=== PATIENT | male | born 1950 | race American Indian/Alaskan Native ===

== ENCOUNTER 2017-09-14 20:36 | Emergency (ER) | payer MEDICARE ==
[2017-09-14 20:37] VITALS: BMI 24.2
[2017-09-14 20:43] VITALS: BP 162/80; PULSE 68; RESP 20; TEMP 97.8; O2SAT 98
--- NOTE | 2017-09-14 21:12 | C.PDOC ---
History Of Present Illness 66 y/o male presents to the ER complaining of small painful abscess to upper abdomen which has been present for the past 1 week. Patient states that the rwas moderate drainage 2 days ago but there is no drainage now. However, he still feels pain. Denies having fever and chills. Time Seen by Provider: 09/14/17 20:56 Chief Complaint (Nursing): Abnormal Skin Integrity History Per: Patient History/Exam Limitations: no limitations Onset/Duration Of Symptoms: Days Current Symptoms Are (Timing): Still Present Severity: Moderate Past Medical History Reviewed: Historical Data, Nursing Documentation, Vital Signs Vital Signs: Last Vital Signs Temp 97.8 F 09/14/17 20:41 Pulse 68 09/14/17 20:41 Resp 20 09/14/17 20:41 BP 162/80 H 09/14/17 20:41 Pulse Ox 98 09/14/17 21:14 - Medical History PMH: Arthritis, Depression, Diabetes, HTN, Hypercholesterolemia Denies: Chronic Kidney Disease Other Surgeries: hx of surgeries - [facility] Procedures ESOPHAGOGASTRODUODENOSCOPY [EGD] W/CLOSED BIOPSY (08/05/14) Family History: States: No Known Family Hx - Social History Hx Tobacco Use: No Hx Alcohol Use: No Hx Substance Use: No (Occacionally THC) - Immunization History Hx Tetanus Toxoid Vaccination: Yes Hx Influenza Vaccination: Yes Hx Pneumococcal Vaccination: No Review Of Systems Except As Marked, All Systems Reviewed And Found Negative. Constitutional: Negative for: Fever, Chills Skin: Positive for: Other (abscess to upper abdomen) Physical Exam - Physical Exam Appears: Non-toxic, No Acute Distress Skin: Normal Color, Warm, Dry Head: Atraumatic, Normacephalic Eye(s): bilateral: Normal Inspection Nose: Normal Oral Mucosa: Moist Neck: Supple Chest: Symmetrical Cardiovascular: Rhythm Regular Respiratory: Normal Breath Sounds, No Rales, No Rhonchi, No Wheezing Gastrointestinal/Abdominal: Soft, No Tenderness, No Guarding, No Rebound, Other (2 x 2 cm area of induration tender with localized erythema to abdominal wall of epigastric area, no fluctuant mass) Extremity: Normal ROM Neurological/Psych: Oriented x3, Normal Speech ED Course And Treatment O2 Sat by Pulse Oximetry: 98 (RA) Pulse Ox Interpretation: Normal Progress Note: There is no need for I&D. Patient has been discharged with prescription for abx and wound check in 2 days. 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 - Scribe Statement The provider has reviewed the documentation as recorded by the Sp Banks Provider Attestation All medical record entries made by the Sp were at my direction and personally dictated by me. I have reviewed the chart and agree that the record accurately reflects my personal performance of the history, physical exam, medical decision making, and the department course for this patient. I have also personally directed, reviewed, and agree with the discharge instructions and disposition.
[2017-09-14] MEDS ORDERED: Tmp-Smz 800 mg-160 mg DS Tab PO SCH (21:15)
[2017-09-14] MEDS ORDERED: Tmp-Smz 800 mg-160 mg DS Tab PO STA (21:15)
[2017-09-14] MEDS ORDERED: Tmp-Smz 800 mg-160 mg DS Tab ONE (21:18)
== END 2017-09-14 21:30 | disposition home or self-care (01) ==
LOC: C.ER 20:36
DX: L73.9 Follicular disorder, unspecified (principal)